=== PATIENT | male | born 1975 | race African-American/Black ===

== ENCOUNTER 2021-05-31 13:45 | Inpatient (IN) | payer MEDICAID ==
[~2021-05-31] VITALS: Ht 182.9 cm; Wt 74.4 kg
[~2021-05-31 13:45] MED LIST: CARV25TA47 MT; CLON0.2T MT; DOXA2TAB PO; HYDR100T26 PO; NIFE-32 PO
[2021-05-31 14:47] LABS: BASOPHILS % 0.9 % (0.0-2.0); EOSINOPHILS % 3.3 % (0.0-5.0); HEMOGLOBIN. 13.3 g/dL (14.0-18.0); LYMPHOCYTES % 17.7 % (20.0-50.0); MEAN CORPUSCULAR HEMOGLOBIN 31.7 pg (28.0-32.0); MEAN CORPUSCULAR VOLUME 92.5 fL (80.0-94.0); MONOCYTES % 7.3 % (2.0-8.0); NEUTROPHILS % 70.8 % (40.0-76.0); PLATELET 338 x1000/uL (130-400); RED BLOOD CELL COUNT 4.21 mill/uL (4.7-6.1); RED CELL DISTRIBUTION WIDTH 13.8 % (11.6-14.6)
[2021-05-31 14:52] LABS: CHLORIDE 98 mEq/L (98-107)
[2021-05-31 14:55] LABS: INR 1.1; PROTHROMBIN TIME 11.4 sec (9.6-11.0)
[2021-05-31 14:57] LABS: ETHANOL BLOOD < 10 mg/dL
[2021-05-31 14:59] LABS: LDL CHOLESTEROL 95 mg/dL (5-100)
[2021-05-31] MEDS ORDERED: ASPIRIN 325MG EC TABLET PO NR (15:15)
[2021-05-31] MEDS ORDERED: CLOPIDOGREL 75MG TABLET PO NR (15:15)
[2021-05-31] MEDS ORDERED: HEPARIN 5000 UNITS/ML VIAL IV PRN ×3 (15:45→16:37)
[2021-05-31] MEDS ORDERED: HEPARIN 25,000 UNITS PREMIX 250 ML IV PRN (15:45)
[2021-05-31] MEDS ORDERED: HEPARIN 5000 UNITS/ML VIAL IV SCH (15:45)
[2021-05-31] MEDS ORDERED: HEPARIN 5000 UNITS/ML VIAL IV NR (16:30)
[2021-05-31] MEDS ORDERED: DOCUSATE SODIUM 100MG CAPSULE PO PRN (22:45)
[2021-05-31] MEDS ORDERED: GUAIFENESIN 200MG/10ML SUGAR FREE UDC PO PRN (22:45)
[2021-05-31] MEDS ORDERED: MAGNESIUM/ALUMINUM HYDROXIDE/SIMETHICONE 30ML UDC PO PRN (22:45)
[2021-05-31] MEDS ORDERED: ONDANSETRON HCL 4MG/2ML INJ IV PRN (22:45)
[2021-05-31] MEDS ORDERED: CLONIDINE 0.1MG TABLET PO PRN (22:45)
[2021-05-31] MEDS ORDERED: ACETAMINOPHEN 325MG TABLET PO PRN (22:45)
[2021-05-31] MEDS ORDERED: HYDROCODONE/ACETAMINOPHEN 5/325MG TABLET PO PRN (22:45)
[2021-05-31] MEDS ORDERED: NALOXONE HCL 0.4MG/ML VIAL IV PRN (23:00)
[2021-05-31] MEDS: AMLODIPINE 10MG TABLET PO SCH (23:51)
[2021-06-01] VITALS (7 sets, daily range): BP systolic 129–165; BP diastolic 91–114
[2021-06-01] MEDS: HYDRALAZINE HCL 100MG TABLET PO SCH ×3 (05:46→22:15)
[2021-06-01] MEDS: CLONIDINE 0.3MG TABLET PO SCH ×3 (05:46→22:16)
[2021-06-01 05:50] LABS: BASOPHILS % 0.6 % (0.0-2.0); EOSINOPHILS % 2.1 % (0.0-5.0); HEMATOCRIT. 36.8 % (42.0-52.0); HEMOGLOBIN. 12.5 g/dL (14.0-18.0); LYMPHOCYTES % 17.5 % (20.0-50.0); MEAN CORPUSCULAR HEMOGLOBIN 31.6 pg (28.0-32.0); MEAN CORPUSCULAR VOLUME 93.2 fL (80.0-94.0); MEAN PLATELET VOLUME 7.9 fl (7.4-10.4); MONOCYTES % 8.6 % (2.0-8.0); NEUTROPHILS % 71.2 % (40.0-76.0); PLATELET 317 x1000/uL (130-400); RED BLOOD CELL COUNT 3.95 mill/uL (4.7-6.1); RED CELL DISTRIBUTION WIDTH 13.4 % (11.6-14.6)
[2021-06-01 06:07] LABS: CHLORIDE 101 mEq/L (98-107)
[2021-06-01 06:19] LABS: LDL CHOLESTEROL 83 mg/dL (5-100)
[2021-06-01 06:21] LABS: HDL CHOLESTEROL 39 mg/dL (40-59)
[2021-06-01] MEDS: AMLODIPINE 10MG TABLET PO SCH (08:36)
[2021-06-01] MEDS ORDERED: DOXAZOSIN MESYLATE 2MG TABLET PO SCH (09:00)
[2021-06-01] MEDS: CARVEDILOL 3.125 MG TABLET PO SCH ×2 (10:31→21:05)
[2021-06-02] VITALS: BP 148/107
[2021-06-02 04:00] VITALS: BP 139/92
[2021-06-02] MEDS: HYDRALAZINE HCL 100MG TABLET PO SCH (06:15)
[2021-06-02] MEDS: CLONIDINE 0.3MG TABLET PO SCH (06:15)
[2021-06-02 08:00] VITALS: BP 115/79
[2021-06-02] MEDS: AMLODIPINE 10MG TABLET PO SCH (08:29)
[2021-06-02] MEDS: CARVEDILOL 3.125 MG TABLET PO SCH (08:29)
[2021-06-02 11:06] VITALS: BP 121/76
== END 2021-06-02 11:30 | disposition home or self-care (01) | DRG 47 ==
LOC: ER 13:45 → 7EST 19:15 → EDBEDREQTM 19:35 → EDBEDREQ 19:35 → EDBEDREQSVC 19:35 → ENRESERV 20:17
PROVIDERS: ADMIT Hospitalist; ATTEND Hospitalist
DX: G45.9 Transient cerebral ischemic attack, unspecified (principal); I50.23 Acute on chronic systolic (congestive) heart failure; I21.A1 Myocardial infarction type 2; N17.9 Acute kidney failure, unspecified; I42.0 Dilated cardiomyopathy; I13.0 Hypertensive heart and chronic kidney disease with heart failure and stage 1 through stage 4 chronic kidney disease, or unspecified chronic kidney disease; G51.0 Bell's palsy; I16.0 Hypertensive urgency; N18.9 Chronic kidney disease, unspecified; Z86.73 Personal history of transient ischemic attack (TIA), and cerebral infarction without residual deficits
CPT/HCPCS: 36415; 70551; 71045; 80053; 80061; 80320; 82962; 83721; 84484; 85025; 93005; 99285; J1644; A4315; G0480

== ENCOUNTER 2021-08-11 14:10 | Emergency (ER) | payer SELFPAY ==
[~2021-08-11] VITALS: Ht 180.3 cm; Wt 72.0 kg
[2021-08-11 14:29] VITALS: BP 220/137
[2021-08-11] MEDS ORDERED: CLON0.3T PO (14:36)
[2021-08-11] MEDS ORDERED: HYDR100T26 PO (14:36)
[2021-08-11] MEDS ORDERED: HYDRALAZINE HCL 100MG TABLET PO ONE (14:45)
[2021-08-11] MEDS ORDERED: CLONIDINE 0.3MG TABLET PO ONE (14:45)
== END 2021-08-11 15:50 | disposition home or self-care (01) ==
LOC: ER 14:10
DX: I10 Essential (primary) hypertension (principal); F12.10 Cannabis abuse, uncomplicated
CPT/HCPCS: 99283

== ENCOUNTER 2025-07-21 18:28 | Inpatient (IN) | payer SELFPAY ==
[~2025-07-21] VITALS: Ht 175.3 cm; Wt 61.7 kg
[~2025-07-21 18:28] MED LIST changes: -CLON0.2T MT; +CLON0.3T PO; +DOXA-14 PO; -DOXA2TAB PO; +HYDR100T11 PO; -HYDR100T26 PO
[2025-07-21 18:36] VITALS: O2SAT 99
[2025-07-21 21:41] LABS: HEMATOCRIT. 23.6 % (42.0-52.0); HEMOGLOBIN. 7.4 g/dL (14.0-18.0); MEAN PLATELET VOLUME 6.7 fl (7.4-10.4); PLATELET 458 x1000/uL (130-400); RED BLOOD CELL COUNT 2.87 mill/uL (4.7-6.1); RED CELL DISTRIBUTION WIDTH 16.9 % (11.6-14.6)
[2025-07-21 21:53] LABS: CREATININE 3.8 mg/dL (0.6-1.3)
[2025-07-21 21:54] LABS: ETHANOL BLOOD < 10 mg/dL (<10); UREA NITROGEN BLOOD 26 mg/dL (9-23)
[2025-07-21 22:12] LABS: LYMPHOCYTES % MANUAL 5.0 % (20.0-50.0); MONOCYTES % MANUAL 7.0 % (2.0-8.0); NEUTROPHILS % MANUAL 88.0 % (45.0-75.0); PLATELET ESTIMATE INCREASED
[2025-07-21] MEDS: CEFTRIAXONE 1GM/50ML 50 ML IV SCH (22:44)
[2025-07-21] MEDS: SODIUM CHLORIDE 0.9% (SEPSIS BOLUS) IV SCH (22:44)
[2025-07-22] MEDS: LOSARTAN 50 MG TABLET PO ONE (00:07)
[2025-07-22] MEDS: AMLODIPINE 10MG TABLET PO ONE (00:07)
[2025-07-22] MEDS: AMLODIPINE 10MG TABLET PO NR (00:19)
[2025-07-22] MEDS: LEVETIRACETAM 500MG PREMIX 100 ML IV ONE (00:43)
[2025-07-22 00:59] LABS: CLARITY URINE CLEAR (CLEAR); COLOR URINE YELLOW (YELLOW); GLUCOSE URINE NEGATIVE (NEGATIVE); KETONES URINE NEGATIVE (NEGATIVE); LEUKOCYTE ESTERASE URINE NEGATIVE (NEGATIVE); NITRITE URINE NEGATIVE (NEGATIVE); OCCULT BLOOD URINE 1+ (NEGATIVE); PH URINE 5.5 (4.5-8.0); PROTEIN URINE 2+ (NEGATIVE); SPECIFIC GRAVITY URINE 1.011 (1.005-1.030); UROBILINOGEN URINE 0.2 E.U./dL (0.2-1.0)
[2025-07-22 01:02] LABS: *AMPHETAMINES SCREEN URINE NEGATIVE (NEGATIVE); *BARBITURATES SCREEN URINE NEGATIVE (NEGATIVE); *BENZODIAZEPINES SCREEN URINE NEGATIVE (NEGATIVE)
[2025-07-22 01:03] LABS: *COCAINE SCREEN URINE NEGATIVE (NEGATIVE); BACTERIA URINE NONE SEEN; CANNABINOID URINE SCREEN PRESUMPTIVE POSITIVE (NEGATIVE); ECSTASY MDMA SCREEN URINE NEGATIVE (NEGATIVE); METHADONE URINE SCREEN NEGATIVE (NEGATIVE); OPIATES URINE SCREEN NEGATIVE (NEGATIVE); PHENCYCLIDINE URINE SCREEN NEGATIVE (NEGATIVE); RBC URINE 0-2 /hpf (0-2); SQUAMOUS EPITHELIAL CELL URINE NONE SEEN /lpf (RARE/1+); WBC URINE 0-2 /hpf (0-2)
[2025-07-22 04:03] VITALS: BP 168/107; PULSE 85; RESP 18; TEMP 36.5292
[2025-07-22] MEDS ORDERED: LORAZEPAM 2MG/ML UD SYRINGE IV PRN (06:30)
[2025-07-22] MEDS: CLONIDINE 0.1MG TABLET PO PRN (07:31)
[2025-07-22 08:00] VITALS: BP_SYST 166; BP_SYST 184; BP_DIAS 104; BP_DIAS 112; PULSE 86; PULSE 89; RESP 18; RESP 19; TEMP 36.6; O2SAT 97; O2SAT 99
[2025-07-22] MEDS: NIFEDIPINE XL 60MG TAB PO SCH (09:00)
[2025-07-22] MEDS: CARVEDILOL 12.5MG TABLET PO SCH (09:01)
[2025-07-22] MEDS: LEVETIRACETAM 500MG TABLET PO SCH (09:01)
[2025-07-22 12:00] VITALS: BP 142/94; PULSE 83; RESP 17; TEMP 36.6; O2SAT 99
[2025-07-22 14:22] VITALS: BP 152/93; PULSE 82
[2025-07-22] MEDS: HYDRALAZINE HCL 100MG TABLET PO SCH (14:23)
[2025-07-22 16:00] VITALS: BP_SYST 134; BP_SYST 144; BP_DIAS 89; BP_DIAS 90; PULSE 87; PULSE 90; RESP 17; TEMP 36.8; O2SAT 99
[2025-07-22] MEDS: CLONIDINE 0.3MG TABLET PO SCH (16:39)
[2025-07-22 20:00] VITALS: BP 120/81; PULSE 80; RESP 17; TEMP 36.8; O2SAT 100
[2025-07-22] MEDS: LEVETIRACETAM 1000MG PREMIX 100 ML IV SCH (20:47)
[2025-07-22] MEDS: CEFTRIAXONE 1GM/50ML 50 ML IV SCH (20:48)
[2025-07-22] MEDS ORDERED: DOXAZOSIN MESYLATE 2MG TABLET PO SCH (21:00)
[2025-07-22] MEDS ORDERED: LEVETIRACETAM 500MG in NACL 100ML PREMIX IV SCH (21:00)
[2025-07-22] MEDS ORDERED: MEDICATION NOT ON FORMULARY EA (Carvedilol 1 TAB) MT SCH (21:00)
[2025-07-23] VITALS: BP 108/70; PULSE 91; RESP 18; TEMP 36.7; O2SAT 100
[2025-07-23 04:00] VITALS: BP 104/78; PULSE 92; RESP 18; TEMP 36.7; O2SAT 100
[2025-07-23 06:50] LABS: BASOPHILS % 0.3 % (0.0-2.0); EOSINOPHILS % 1.0 % (0.0-5.0); HEMATOCRIT. 23.8 % (42.0-52.0); HEMOGLOBIN. 7.5 g/dL (14.0-18.0); LYMPHOCYTES % 9.8 % (20.0-50.0); MEAN PLATELET VOLUME 6.5 fl (7.4-10.4); MONOCYTES % 7.0 % (2.0-8.0); NEUTROPHILS % 81.9 % (40.0-76.0); PLATELET 464 x1000/uL (130-400); RED BLOOD CELL COUNT 2.90 mill/uL (4.7-6.1); RED CELL DISTRIBUTION WIDTH 16.9 % (11.6-14.6)
[2025-07-23 07:18] LABS: CREATININE 3.6 mg/dL (0.6-1.3)
[2025-07-23 07:19] LABS: UREA NITROGEN BLOOD 25.0 mg/dL (9-23)
[2025-07-23 08:00] VITALS: BP 120/83; PULSE 84; RESP 18; TEMP 36.6; O2SAT 99
[2025-07-23] MEDS ORDERED: ATOR10TA69 MT (09:22)
[2025-07-23] MEDS ORDERED: AMLO10TA80 MT (09:22)
[2025-07-23 12:00] VITALS: BP 119/81; PULSE 82; RESP 16; TEMP 36.6; O2SAT 97
[2025-07-23 16:00] VITALS: BP 118/82; PULSE 76; RESP 16; TEMP 36.4; O2SAT 97
== END 2025-07-23 17:30 | disposition left against medical advice (07) | DRG 53 ==
LOC: ER 18:28 → 6WST 07-22 00:41 → EDBEDREQ 07-22 00:50 → EDBEDREQTM 07-22 00:50 → ENRESERV 07-22 01:28
PROVIDERS: ADMIT Internal Medicine; ATTEND Internal Medicine
DX: G40.909 Epilepsy, unspecified, not intractable, without status epilepticus (principal); N17.9 Acute kidney failure, unspecified; I13.0 Hypertensive heart and chronic kidney disease with heart failure and stage 1 through stage 4 chronic kidney disease, or unspecified chronic kidney disease; I50.9 Heart failure, unspecified; D64.9 Anemia, unspecified; N18.9 Chronic kidney disease, unspecified; F12.10 Cannabis abuse, uncomplicated; Z53.29 Procedure and treatment not carried out because of patient's decision for other reasons; D72.829 Elevated white blood cell count, unspecified; Z79.899 Other long term (current) drug therapy; Z86.73 Personal history of transient ischemic attack (TIA), and cerebral infarction without residual deficits; Z91.148 Patient's other noncompliance with medication regimen for other reason
CPT/HCPCS: 36415; 71045; 80048; 80305; 80320; 81003; 83605; 84145; 85025; 93005; 99291; J0696; J1953; G0480